=== PATIENT | male | born 1935 | race Caucasian/White ===

== ENCOUNTER 2019-04-21 12:32 | Emergency (ER) | payer MEDICARE ==
[~2019-04-21] VITALS: Ht 180.3 cm; Wt 63.6 kg
[2019-04-21] MEDS ORDERED: CARB1TAB41 PO (13:48)
[2019-04-21] MEDS ORDERED: PRAM0.258 PO (13:48)
[2019-04-21] MEDS ORDERED: CYCL5.5D3 OS (13:48)
[2019-04-21] MEDS ORDERED: CHOL200059 PO (13:48)
[2019-04-21] MEDS ORDERED: MIDO2.5T15 PO (13:48)
[2019-04-21] MEDS ORDERED: ASPI81 PO (13:48)
[2019-04-21] MEDS ORDERED: MOM30 PO (13:48)
[2019-04-21] MEDS ORDERED: DOCU-275 PO (13:48)
[2019-04-21] MEDS ORDERED: AmLODIPine BESYLATE 5 MG TABLET PO ONE (15:30)
[2019-04-21] MEDS ORDERED: ACETAMINOPHEN 325 MG TABLET PO ONE (15:30)
[2019-04-21 16:17] LABS: APPEARANCE,URINE CLEAR (CLEAR); BILIRUBIN,URINE NEGATIVE (NEGATIVE); GLUCOSE, URINE (UA) NEGATIVE (NEGATIVE); KETONES,URINE NEGATIVE (NEGATIVE); LEUKOCYTE ESTERASE ,URINE MODERATE (NEGATIVE); NITRATE,URINE NEGATIVE (NEGATIVE); OCCULT BLOOD,URINE MODERATE (NEGATIVE); PROTEIN,URINE NEGATIVE (NEGATIVE); UROBILINOGEN,URINE 0.2 mg/dL (<=1.0)
[2019-04-21 16:33] LABS: BACTERIA,URINE Moderate /HPF (None Seen); WBC,URINE 26-50 /HPF (0-5)
[2019-04-21 16:34] LABS: SQUAMOUS EPITHELIAL CELL,UR Few /LPF (None Seen)
[2019-04-21] MEDS ORDERED: CefTRIAXone SODIUM 1 GM/VIAL IM ONE (17:00)
[2019-04-21] MEDS ORDERED: LIDOCAINE/PF 1% 2 ML VIAL IM ONE (17:00)
[2019-04-21 18:00] VITALS: BP 176/79
== END 2019-04-21 18:28 | disposition home or self-care (01) ==
LOC: EMS 12:33
DX: S50.01XA Contusion of right elbow, initial encounter (principal); N39.0 Urinary tract infection, site not specified; Z79.82 Long term (current) use of aspirin; W01.0XXA Fall on same level from slipping, tripping and stumbling without subsequent striking against object, initial encounter; Y93.89 Activity, other specified; Y92.89 Other specified places as the place of occurrence of the external cause; Y99.8 Other external cause status
CPT/HCPCS: 70450; 73080; 81001; 87086; 96372; 99284; J0696; J3490